=== PATIENT | male | born 1975 | race Hispanic/Latino ===

== ENCOUNTER 2017-09-04 21:53 | Observation (INO) | payer SELFPAY ==
[2017-09-04] MEDS ORDERED: Acetaminophen 325 MG TAB ONE (22:55)
[2017-09-04] MEDS ORDERED: Morphine 2 MG/ML SYRINGE ONE (23:28)
[2017-09-04] MEDS ORDERED: Ibuprofen 800 MG TAB ONE (23:43)
[2017-09-05] MEDS ORDERED: Ondansetron HCl/PF 4 MG/2 ML Vial IVP PRN ×3 (00:44→10:26)
[2017-09-05] MEDS: Piperacillin/Tazobactam 3.375 GM in Sodium Chloride 0.9% 100 ML IVPB SCH ×4 (01:12→17:38)
[2017-09-05] MEDS: Sodium Chloride 0.9% 1,000 ML IV SCH ×2 (01:13→08:33)
[2017-09-05] MEDS: Morphine 2 MG/ML SYRINGE SLOW IVP PRN ×2 (01:13→05:53)
[2017-09-05 01:36] VITALS: BMI 27.4
[2017-09-05] MEDS ORDERED: Fentanyl 100 MCG/2 ML VIAL ONE ×2 (08:33→09:16)
[2017-09-05] MEDS ORDERED: Bupivacaine 0.25% HCL 30 ML VIAL ONE (08:33)
--- NOTE | 2017-09-05 08:33 | HP ---
CHIEF COMPLAINT: Appendicitis. HISTORY OF PRESENT ILLNESS: This is a 42-year-old male who presents transfer from [facility] with a history of pain in his right lower quadrant, described as sharp, 8/10, made worse by moving. CT s can reveals acute appendicitis, admitted to my service on Zosyn overnight. PAST MEDICAL HISTORY: He denies. PAST SURGICAL HISTORY: Denies. MEDICINES TAKEN DAILY: None. ALLERGIES: No known drug allergies. SOCIAL HISTORY: No smoking, alcohol or other drugs. REVIEW OF SYSTEMS: Ten system review of systems otherwise negative unless described above. PHYSICAL EXAMINATION: VITAL SIGNS: Blood pressure is 116/76, pulse 95, respirations 18, temperature 100.3. HEENT: Sclerae are anicteric. Oropharynx is clear. NECK: No lymphadenopathy. CHEST: Clear. HEART: Regular rate and rhythm. ABDOMEN: Soft, tender right lower quadrant, localized guarding, no rebound, no abdominal inguinal he rnias. EXTREMITIES: No ischemia or edema to extremities. IMAGING DATA: CT scan shows acute appendicitis. ASSESSMENT: Acute appendicitis. PLAN: Laparoscopic appendectomy. Risks, benefits, and alternatives discussed. He gives consent. Eduar gonzales will do this today.
[2017-09-05] MEDS ORDERED: Lidocaine 2% w/Epinephrine 1:200K 20 ML VIAL ONE (08:37)
[2017-09-05] MEDS ORDERED: FLU VACC QS2017-18 36 mo. & older 0.5 ML SYRINGE IM ONE (09:00)
[2017-09-05] MEDS ORDERED: Promethazine HCl 25 MG/ML VIAL SLOW IVP PRN (09:52)
[2017-09-05] MEDS ORDERED: Promethazine HCl 25 MG/ML VIAL IM PRN ×2 (09:52→10:26)
[2017-09-05] MEDS ORDERED: D5 1/2 NS w/20 mEq KCL 1,000 ML ONE (10:00)
[2017-09-05] MEDS ORDERED: Promethazine HCl 25 MG/ML VIAL ONE (10:12)
[2017-09-05] MEDS ORDERED: Morphine 4 MG/ML Carpuject SLOW IVP PRN (10:26)
[2017-09-05] MEDS ORDERED: Dextrose 5% in Water 1,000 ML IV PRN (10:26)
[2017-09-05] MEDS ORDERED: hydrALAZINE 20 MG/ML VIAL SLOW IVP PRN (10:26)
[2017-09-05] MEDS ORDERED: HYDROcodone/Acetaminophen 10/325 mg Tablet PO PRN (10:26)
[2017-09-05] MEDS ORDERED: Ketorolac Tromethamine 30 MG/ML VIAL IVP PRN (10:26)
[2017-09-05] MEDS ORDERED: Dextrose 50% Abboject 50 ML SYRINGE SLOW IVP PRN (10:26)
[2017-09-05] MEDS ORDERED: Morphine 2 MG/ML SYRINGE SLOW IVP PRN (10:46)
[2017-09-05] MEDS: D5 1/2 NS w/20 mEq KCL 1,000 ML IV SCH ×2 (11:13→20:22)
[2017-09-05] MEDS ORDERED: Lidocaine 1% PF 5 ML VIAL ONE (12:44)
[2017-09-05] MEDS ORDERED: Glycopyrrolate 0.2 MG/ML 5 ML SYRINGE ONE (12:44)
[2017-09-05] MEDS ORDERED: Propofol 200 MG/20 ML VIAL ONE (12:44)
[2017-09-05] MEDS ORDERED: Dexamethasone 20 MG/5 ML VIAL ONE (12:44)
[2017-09-05] MEDS ORDERED: Ondansetron HCl/PF 4 MG/2 ML Vial ONE (12:44)
[2017-09-05] MEDS ORDERED: Ketorolac Tromethamine 30 MG/ML VIAL ONE (12:44)
[2017-09-05] MEDS: HYDROcodone/Acetaminophen 10/325 mg Tablet PO PRN (17:40)
--- NOTE | 2017-09-05 19:32 | OP ---
DATE OF PROCEDURE: 09/05/2017 PREOPERATIVE DIAGNOSIS: Acute gangrenous appendicitis. POSTOPERATIVE DIAGNOSIS: Acute gangrenous appendicitis. PROCEDURE PERFORMED: Laparoscopic appendectomy. SURGEON: Misael Garcia M.D. ANESTHESIA: General. ESTIMATED BLOOD LOSS: Minimal. COMPLICATIONS: None. SPECIMEN: Appendix. FINDINGS: Gangrenous appendicitis. PROCEDURE IN TECHNIQUE: The patient was taken to the operating room and placed supine on the table. After general anesthetic was obtained, a Teixeira was placed. The abdomen shaved, and draped in a ster ile fashion. Curved incision made below the umbilicus. Cautery was used to dissect down to and scor e the fascia. Abdominal cavity entered bluntly using a Gayle clamp. Holding stitch of PDS was place d on each side of the fascia. Hicks trocar was placed. High-flow pneumoperitoneum was obtained. A suprapubic 5 murmur port and a left lower quadrant 5-mm port were placed under direct visualization. The cecum was rolled over to reveal acute appendicitis. There was a phlegmonous changes around the appendix, but no significant purulence. Window was made at the base of the appendix in the mesoappe ndix. Laparoscopic stapler fired across the base of the appendix. A vascular reload fired across th e mesoappendix. Appendix was placed in an Endo catch bag and brought out through the Hicks. The ri ght lower quadrant and pelvis was irrigated using sterile solution until returns were clear. No ongo ing bleeding. All port sites infiltrated using local anesthetic. All ports were removed under camer a visualization. It was let down. PDS was used to close the fascial defect below the umbilicus. Al l incisions were irrigated and closed using 4-0 Monocryl and Dermabond. The patient went to recovery in stable condition. All instrument counts, needle counts, and lap counts were correct.
[2017-09-05] MEDS: Famotidine 20 MG TAB PO SCH (20:22)
[2017-09-05] MEDS: Famotidine/PF 20 mg/2ml Vial SLOW IVP SCH (20:23)
[2017-09-06] MEDS: Piperacillin/Tazobactam 3.375 GM in Sodium Chloride 0.9% 100 ML IVPB SCH ×3 (00:11→13:02)
[2017-09-06 04:53] VITALS: TEMP 98.9
[2017-09-06] MEDS: D5 1/2 NS w/20 mEq KCL 1,000 ML IV SCH (05:10)
[2017-09-06] MEDS: HYDROcodone/Acetaminophen 10/325 mg Tablet PO PRN (05:10)
[2017-09-06 05:11] LABS: #Lymphocytes 1.4 thou/uL (1.20-3.40); #Monocytes 0.6 thou/uL (0.11-0.59); #Neutrophils 9.5 thou/uL (1.40-6.50); %Lymphocytes 12.5 % (21.0-51.0); %Monocytes 5.5 % (0.0-10.0); Hemoglobin 11.3 g/dL (14.0-18.0); Mean Corpuscular HGB CONC 32.8 g/dL (32.0-36.0); Mean Corpuscular Hemoglobin 31.5 pg (27.0-31.0); Mean Platelet Volume 7.5 fL (7.4-10.4); Platelet Count 123 thou/uL (130-400); RBC Distribution Width 11.5 % (11.5-14.5); White Blood Cell (WBC) Count 11.6 thou/uL (4.8-10.8)
[2017-09-06 05:33] LABS: Anion Gap 9 mmol/L (10-20); BUN (Urea Nitrogen) 11 mg/dL (8.9-20.6); Calc. Creatinine Clearance 115 mL/min (70-130); Calcium 8.4 mg/dL (7.8-10.44); Carbon Dioxide 26 mmol/L (22-29); Chloride 105 mmol/L (98-107); Estimated GFR-MDRD Greater than 90; Glucose 189 mg/dL (70-105); Potassium 3.9 mmol/L (3.5-5.1); Sodium 136 mmol/L (136-145)
[2017-09-06] MEDS: Famotidine/PF 20 mg/2ml Vial SLOW IVP SCH (08:56)
[2017-09-06] MEDS: Famotidine 20 MG TAB PO SCH (08:56)
[2017-09-06] MEDS ORDERED: Acetaminophen 500 MG TAB PO PRN (10:06)
[2017-09-06] MEDS ORDERED: Ibuprofen 600 MG TAB PO PRN (10:06)
[2017-09-06] MEDS ORDERED: Milk Of Magnesia 30 ML UDCUP PO PRN (10:06)
--- NOTE | 2017-09-06 10:23 | PRG ---
DATE OF SERVICE: 09/06/2017 Robbin Tam is doing well. He is tolerating his diet. He has not had any nausea or vomiting. PHYSICAL EXAMINATION: LUNGS: Clear to auscultation. CARDIAC: Regular rate and rhythm without murmur or gallop. ABDOMEN: Soft, nontender. VITAL SIGNS: Temperature 98.9 degrees, 62 heart rate 99/66. LABORATORY: White count 11, hemoglobin 9.3. ASSESSMENT AND PLAN: The patient did well after an advanced appendicitis, home with oral antibiotics , analgesics, prescription was written per Dr. Garcia. Follow up with Dr. Garcia in 2-3 weeks. Di et and activity as tolerated.
[2017-09-06] MEDS ORDERED: Polyethylene Glycol 3350 17 GM Packet PO SCH (10:30)
[2017-09-06 12:57] VITALS: BP 107/70
[2017-09-07] MEDS ORDERED: Polyethylene Glycol 3350 17 GM Packet PO SCH (09:00)
== END 2017-09-06 14:18 | disposition home or self-care (01) ==
LOC: ERS 21:53 → SURG A 23:22
PROVIDERS: ADMIT Surgery; ATTEND Surgery
PROC: 0DTJ4ZZ Resection of Appendix, Percutaneous Endoscopic Approach (ICD-10-PCS; principal; 2017-09-06)
DX: K35.3 Acute appendicitis with localized peritonitis (principal); Z79.2 Long term (current) use of antibiotics; Z79.899 Other long term (current) drug therapy
CPT/HCPCS: 36415; 80048; 85025; 88304; 96361; 96365; 96366; 96374; 96375; 96376; G0378; J1100; J1885; J2001; J2270; J2405; J2543; J2550; J2704; J3010; J7050; S0020